=== PATIENT | male | born 1985 | race Caucasian/White ===

== ENCOUNTER → 2018-04-17 | Outpatient (CLI) | payer BC ==
--- NOTE | 2018-04-17 14:18 | MR ---
EXAMINATION TYPE: MR lumbar spine wo con DATE OF EXAM: 04/17/2018 COMPARISON: Plain film 09/09/2017 HISTORY: Sciatic Pain Right side x10 months TECHNIQUE: Multiplanar, multisequence images of the lumbar spine were acquired. L1-L2: Normal disc appearance without desiccation. No herniation, protrusion or disc bulging. No ca nal stenosis is present. Foramina are patent bilaterally. L2-L3: Broad-based posterior disc bulge causes mild anterior mass effect on the thecal sac. There is some mild facet arthropathy with hypertrophy of the ligamentum flavum encroaching on the lateral rece sses. L3-L4: Posterior extension of endplate disc complex causes anterior mass effect on the thecal sac, sm all central posterior disc herniation causes anterior mass effect on the thecal sac. No significant f oraminal encroachment or central stenosis. Facet arthropathy with hypertrophy ligamentum flavum encro aches on the lateral recess bilaterally. L4-L5: Increased signal at the posterior aspect of the disc may represent annular tear, there is a sm all central posterior disc herniation causing anterior mass effect on the thecal sac. No definite for aminal encroachment or significant spinal stenosis. Facet arthropathy with hypertrophy of the ligamen eric flavum encroaches somewhat greater on the left lateral recess. L5-S1: Normal disc appearance without desiccation. No herniation, protrusion or disc bulging. No ca nal stenosis is present. Foramina are patent bilaterally. Lumbar segments are intact. No paraspinal masses are identified. Conus medullaris has a normal appe arance. There is a spinal curvature. Loss of disc height and signal present at L2-3, L3-4, L4-5, ther e is endplate discogenic marrow signal change, Schmorl's nodes present at the superior endplate L5, i nferior endplate of L4. There is multilevel spondylosis. IMPRESSION: Degenerative disc disease, facet arthropathy as described.
== END | disposition home or self-care (01) ==
LOC: RADMRIMAIN 12:14
PROVIDERS: ATTEND Family Medicine
DX: M51.26 Other intervertebral disc displacement, lumbar region (principal); M51.36 Other intervertebral disc degeneration, lumbar region; M47.816 Spondylosis without myelopathy or radiculopathy, lumbar region; M46.96 Unspecified inflammatory spondylopathy, lumbar region; M51.46 Schmorl's nodes, lumbar region
CPT/HCPCS: 72148

== ENCOUNTER → 2020-10-10 | Outpatient (CLI) | payer BC | END | disposition home or self-care (01) | LOC: LABWHC1 14:48 | PROVIDERS: ATTEND Nurse Practitioner | DX: Z20.828 Contact with and (suspected) exposure to other viral communicable diseases (principal) | CPT/HCPCS: U0003; C9803 ==